=== PATIENT | female | born 1970 | race Caucasian/White ===

== ENCOUNTER 2017-10-07 15:03 | Emergency (ER) | payer MEDICAID ==
--- NOTE | 2017-10-07 15:35 | EDM.PDOC ---
ED HPI GENERAL MEDICAL PROBLEM - General Chief Complaint: Upper Extremity Injury/Pain Stated Complaint: LEFT ARM/SHOULDER PAIN Time Seen by Provider: 10/07/17 15:20 Source of Information: Reports: Patient History Limitations: Reports: No Limitations - History of Present Illness INITIAL COMMENTS - FREE TEXT/NARRATIVE: 47 yo female here with a 2 mos hx of progressive L shoulder pain and inability now to raise that arm. The pain radiates at times toward the elbow. Has not been seen for this. Recalls no acute injury other than possibly early on with attempting to put her bra on. 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) Left Arm Pain Score (Numeric/FACES): 2 - Related Data Allergies Allergy/AdvReac Type Severity Reaction Status Date / Time No Known Allergies Allergy Verified 10/07/17 15:22 Home Meds: Home Meds NK [No Known Home Meds] 10/07/17 [History] Past Medical History Other OB/BYN History: UTERINE FIBROIDS Hematologic History: Reports: Anemia - Past Surgical History Other Musculoskeletal Surgeries/Procedures:: L ANKLE REPAIR Social & Family History - Tobacco Use Smoking Status *Q: Unknown Ever Smoked Review of Systems - Review of Systems Review Of Systems: See Below Musculoskeletal: Reports: Shoulder Pain (Left) Skin: Reports: No Symptoms Neurological: Reports: No Symptoms ED EXAM, GENERAL - Physical Exam Exam: See Below Exam Limited By: No Limitations General Appearance: Alert, WD/WN, No Apparent Distress Extremities: Normal Inspection, Non-Tender, Limited Range of Motion (Unable to abduct at the left shoulder even to horizontal. ). No: Normal Range of Motion, No Pedal Edema, Joint Swelling, Arm Pain Neurological: Alert, Oriented, CN II-XII Intact, Normal Cognition Psychiatric: Normal Affect, Normal Mood Skin Exam: Warm, Dry, Intact, Normal Color, No Rash Lymphatic: No Adenopathy Course - Vital Signs Text/Narrative:: sling given Last Recorded V/S: Last Vital Signs Temp 36.5 C 10/07/17 15:24 Pulse 67 10/07/17 15:24 Resp 16 10/07/17 15:24 BP 161/103 H 10/07/17 15:24 Pulse Ox 99 10/07/17 15:24 Departure - Departure Time of Disposition: 15:40 Disposition: Home, Self-Care 01 Condition: Good Clinical Impression: Rotator cuff insufficiency Qualifiers: Laterality: left Qualified Code(s): M25.312 - Other instability, left shoulder - Discharge Information Referrals: PCP,None [Primary Care Provider] -
== END 2017-10-07 15:49 | disposition home or self-care (01) ==
LOC: JP.ED 15:03
DX: M75.82 Other shoulder lesions, left shoulder (principal)
CPT/HCPCS: 99283

== ENCOUNTER 2017-11-03 10:09 | Emergency (ER) | payer MEDICAID ==
--- NOTE | 2017-11-03 12:38 | EDM.PDOC ---
ED HPI GENERAL MEDICAL PROBLEM - General Chief Complaint: Skin Complaint Stated Complaint: INFECTION ON BUTTOCKS AREA Time Seen by Provider: 11/03/17 12:11 Source of Information: Reports: Patient, RN Notes Reviewed History Limitations: Reports: No Limitations - History of Present Illness INITIAL COMMENTS - FREE TEXT/NARRATIVE: 47-year-old female presents to the emergency department today with complaint of rash on her buttocks area, she states it developed over the last couple days it seems to be spreading initially started on the left now has gone to the right it is predominantly above the gluteal cleft it is quite itchy Sacral Pain Score (Numeric/FACES): 5 - Related Data Allergies Allergy/AdvReac Type Severity Reaction Status Date / Time No Known Allergies Allergy Verified 11/03/17 12:06 Home Meds: Home Meds NK [No Known Home Meds] 11/03/17 [History] Past Medical History 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 History: Reports: Fibroids Other OB/BYN History: UTERINE FIBROIDS Musculoskeletal History: Reports: Other (See Below) Other Musculoskeletal History: L shoulder pain Hematologic History: Reports: Anemia - Past Surgical History Other Musculoskeletal Surgeries/Procedures:: L ANKLE REPAIR-torn tendon and cyst Social & Family History - Tobacco Use Smoking Status *Q: Heavy Tobacco Smoker Years of Tobacco use: 20 Packs/Tins Daily: 1 - Caffeine Use Caffeine Use: Reports: Coffee - Alcohol Use Days Per Week of Alcohol Use: 3 Number of Drinks Per Day: 3 Total Drinks Per Week: 9 - Recreational Drug Use Recreational Drug Use: No ED ROS GENERAL - Review of Systems Review Of Systems: See Below Constitutional: Reports: No Symptoms Skin: Reports: Pruritis, Rash ED EXAM, SKIN/RASH Exam: See Below Text/Narrative:: Examination of the rash there are 2 predominately patches slightly raised it is erythematous there are multiple satellite lesions no pustules noted is no pallor , nontender Course - Vital Signs Last Recorded V/S: Last Vital Signs Temp 98.1 F 11/03/17 12:02 Pulse 65 11/03/17 12:02 Resp 16 11/03/17 12:02 BP 151/85 H 11/03/17 12:02 Pulse Ox 100 11/03/17 12:02 - Orders/Labs/Meds Orders: Active Orders 24 hr Category Date Time Status ROOPA PREP [MYC] Stat Lab 11/03/17 12:34 Ordered Departure - Departure Time of Disposition: 12:37 Disposition: Home, Self-Care 01 Condition: Good Clinical Impression: Tinea corporis - Discharge Information Referrals: PCP,None [Primary Care Provider] - Additional Instructions: Try the antifungals, Please followup with your primary care provider in 3-5 days if not better, please call return to the emergency department with worsening of symptoms. - My Orders Last 24 Hours: My Active Orders 11/03/17 12:34 ROOPA PREP [MYC] Stat - Assessment/Plan Last 24 Hours: My Active Orders 11/03/17 12:34 ROOPA PREP [MYC] Stat Plan: Assessment Acuity = acute Site and laterality = tinea corporis Etiology = yeast Manifestations = pruritus Location of injury = Home Lab values = ROOPA was negative however sample was poor Plan Recommend treatment with antifungals, she will follow-up with her primary care 3 -5 days for reevaluation This note was dictated using [employer] voice recognition software please call with any questions on syntax or justa.
== END 2017-11-03 13:15 | disposition home or self-care (01) ==
LOC: JP.ED 10:09
DX: B35.4 Tinea corporis (principal); F17.210 Nicotine dependence, cigarettes, uncomplicated
CPT/HCPCS: 87220; 99283

== ENCOUNTER 2018-01-03 22:08 | Emergency (ER) | payer MEDICAID ==
[2018-01-03] MEDS ORDERED: Sodium Chloride 0.9% 1,000 ML IV SCH (23:00)
--- NOTE | 2018-01-03 23:04 | EDM.PDOC ---
ED HPI GENERAL MEDICAL PROBLEM - General Chief Complaint: Genitourinary Problem Stated Complaint: UNABLE TO URINATE Time Seen by Provider: 01/03/18 22:20 Source of Information: Reports: Patient History Limitations: Reports: No Limitations - History of Present Illness INITIAL COMMENTS - FREE TEXT/NARRATIVE: pt has a frequent urge to void but she is not able to go whrn she gets there . She has a great deal of pressure on her bladder. She feels like there is a fullness in the rt lower abdoman. She hs a history of a enlarged uterus with multiple fibroids. She has been told that she needs a hysterectomy. Onset: Today, Other (Pt has had difficulty voiding all nite. 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, Other OB/BYN History: UTERINE FIBROIDS, needs to have a hysterectomy Musculoskeletal History: Reports: Other (See Below) Other Musculoskeletal History: L shoulder pain Hematologic History: Reports: Anemia - Infectious Disease History Infectious Disease History: Reports: Chicken Pox - Past Surgical History Other Musculoskeletal Surgeries/Procedures:: L ANKLE REPAIR-torn tendon and cyst Social & Family History - Tobacco Use Smoking Status *Q: Never Smoker Second Hand Smoke Exposure: No - Caffeine Use Caffeine Use: Reports: Coffee, Soda - Recreational Drug Use Recreational Drug Use: No ED ROS GENERAL - Review of Systems Review Of Systems: See Below Constitutional: Reports: No Symptoms HEENT: Reports: No Symptoms Respiratory: Reports: No Symptoms Cardiovascular: Reports: No Symptoms Endocrine: Reports: No Symptoms GI/Abdominal: Reports: Abdominal Pain, Other (pt has pressure in the rt lower abdoman. ) : Reports: Other (pt is having difficulty voiding but she does not have a lot of urine in her bladder. She does have some burning when she voids. ) Musculoskeletal: Reports: No Symptoms Skin: Reports: No Symptoms Neurological: Reports: No Symptoms Psychiatric: Reports: No Symptoms ED EXAM, RENAL/ - Physical Exam Exam: See Below Text/Narrative:: pt arrived with a constant urge to void but is not able to go more than a small amount when she gets there. Exam Limited By: No Limitations General Appearance: Alert, Moderate Distress Ears: Normal TMs Nose: Normal Inspection Throat/Mouth: Normal Inspection Head: Atraumatic Neck: Normal Inspection Respiratory/Chest: No Respiratory Distress Cardiovascular: Regular Rate, Rhythm GI/Abdominal: Soft, Tender, Other (pt has rt lower quandrant and suprapupic tenderness. ) (Female) Exam: Deferred Rectal (Female) Exam: Deferred Back Exam: Normal Inspection Extremities: Normal Inspection Neurological: Alert, Oriented, Normal Cognition Psychiatric: Normal Affect Course - Vital Signs Last Recorded V/S: Last Vital Signs Temp 37.3 C 01/03/18 22:21 Pulse 74 01/03/18 22:21 Resp 18 01/03/18 22:21 BP 161/97 H 01/03/18 22:21 Pulse Ox 98 01/03/18 22:21 - Orders/Labs/Meds Labs: Laboratory Tests 01/03/18 01/03/18 01/03/18 Range/Units 22:30 22:30 22:40 WBC 9.9 (4.5-11.0) K/uL RBC 4.26 (3.30-5.50) M/uL Hgb 13.4 (12.0-15.0) g/dL Hct 39.5 (36.0-48.0) % MCV 93 (80-98) fL MCH 32 H (27-31) pg MCHC 34 (32-36) % Plt Count 221 (150-400) K/uL Neut % (Auto) 68 H (36-66) % Lymph % (Auto) 22 L (24-44) % [place] % (Auto) 7 H (2-6) % Eos % (Auto) 3 (2-4) % Baso % (Auto) 0 (0-1) % Sodium (140-148) mmol/L Potassium (3.6-5.2) mmol/L Chloride (100-108) mmol/L Carbon Dioxide (21-32) mmol/L Anion Gap (5.0-14.0) mmol/L BUN (7-18) mg/dL Creatinine (0.6-1.0) mg/dL Est Cr Clr Drug Dosing mL/min Estimated GFR (MDRD) (>60) Glucose (74-106) mg/dL Calcium (8.5-10.1) mg/dL Total Bilirubin (0.2-1.0) mg/dL AST (15-37) U/L ALT (12-78) U/L Alkaline Phosphatase (46-116) U/L Total Protein (6.4-8.2) g/dL Albumin (3.4-5.0) g/dL Globulin (2.3-3.5) g/dL Albumin/Globulin Ratio (1.2-2.2) Urine Color Red Urine Appearance Slightly cloudy Urine pH 8.0 (4.5-8.0) Ur Specific [place] 1.010 (1.008-1.030) Urine Protein 500 H (NEGATIVE) mg/dL Urine Glucose (UA) Normal (NEGATIVE) mg/dL Urine Ketones Negative (NEGATIVE) mg/dL Urine Occult Blood Large (NEGATIVE) Urine Nitrite Negative (NEGATIVE) Urine Bilirubin Negative (NEGATIVE) Urine Urobilinogen Normal (NORMAL) mg/dL Ur Leukocyte Esterase Large (NEGATIVE) Urine RBC 50-75 H (0-5) Urine WBC 50-75 H (0-5) Ur Epithelial Cells Few Amorphous Sediment Not seen Urine Bacteria Many Urine Mucus Not seen Urine HCG, Qual Negative 01/03/18 Range/Units 22:40 WBC (4.5-11.0) K/uL RBC (3.30-5.50) M/uL Hgb (12.0-15.0) g/dL Hct (36.0-48.0) % MCV (80-98) fL MCH (27-31) pg MCHC (32-36) % Plt Count (150-400) K/uL Neut % (Auto) (36-66) % Lymph % (Auto) (24-44) % [place] % (Auto) (2-6) % Eos % (Auto) (2-4) % Baso % (Auto) (0-1) % Sodium 139 L (140-148) mmol/L Potassium 3.5 L (3.6-5.2) mmol/L Chloride 105 (100-108) mmol/L Carbon Dioxide 23 (21-32) mmol/L Anion Gap 14.5 H (5.0-14.0) mmol/L BUN 10 (7-18) mg/dL Creatinine 0.8 (0.6-1.0) mg/dL Est Cr Clr Drug Dosing 85.81 mL/min Estimated GFR (MDRD) > 60 (>60) Glucose 80 (74-106) mg/dL Calcium 8.2 L (8.5-10.1) mg/dL Total Bilirubin 0.3 (0.2-1.0) mg/dL AST 21 (15-37) U/L ALT 19 (12-78) U/L Alkaline Phosphatase 67 (46-116) U/L Total Protein 7.1 (6.4-8.2) g/dL Albumin 3.6 (3.4-5.0) g/dL Globulin 3.5 (2.3-3.5) g/dL Albumin/Globulin Ratio 1.0 L (1.2-2.2) Urine Color Urine Appearance Urine pH (4.5-8.0) Ur Specific [place] (1.008-1.030) Urine Protein (NEGATIVE) mg/dL Urine Glucose (UA) (NEGATIVE) mg/dL Urine Ketones (NEGATIVE) mg/dL Urine Occult Blood (NEGATIVE) Urine Nitrite (NEGATIVE) Urine Bilirubin (NEGATIVE) Urine Urobilinogen (NORMAL) mg/dL Ur Leukocyte Esterase (NEGATIVE) Urine RBC (0-5) Urine WBC (0-5) Ur Epithelial Cells Amorphous Sediment Urine Bacteria Urine Mucus Urine HCG, Qual Meds: Medications Discontinued Medications Generic Name Dose Route Start Last Admin Trade Name Freq PRN Reason Stop Dose Admin Sodium Chloride 1,000 mls @ 999 mls/hr 01/03/18 23:00 01/03/18 23:52 Normal Saline IV 999 mls/hr ASDIRECTED RAHEEM Administration Sodium Chloride 100 mls @ 3 mls/sec 01/03/18 23:30 01/03/18 23:42 Normal Saline IV 3 mls/sec ASDIRECTED RAHEEM Administration Ceftriaxone Sodium 1 gm/ 50 mls @ 100 mls/hr 01/03/18 23:42 01/03/18 23:54 Sodium Chloride IV 01/04/18 00:11 100 mls/hr ONETIME ONE Administration Iopamidol 100 ml 01/03/18 23:30 01/03/18 23:42 Isovue-300 (61%) IV 100 ml . DIRECTED RAHEEM Administration - Re-Assessments/Exams Free Text/Narrative Re-Assessment/Exam: 01/04/18 00:43 Urine has alot of blood in it because she is on her period. The urine also shows alot of bacteria. A culture was set up. Her cat scan shows very large fibroids, her bladder wall is thickened probably from infection. Departure - Departure Time of Disposition: 00:44 Disposition: Home, Self-Care 01 Condition: Fair Clinical Impression: UTI (urinary tract infection), Fibroid uterus - Discharge Information Instructions: Uterine Fibroids, [id number], Urinary Tract Infection, Adult, [id number] Referrals: PCP,None [Primary Care Provider] - Forms: ED Department Discharge Care Plan Goals: procede with the hysterectomy as previosly reccommended, push fluids, cipro 500mg bid for 10 days, pyridium 200mg tid.
[2018-01-03] MEDS ORDERED: Iopamidol 612 MG/ML 100 ML Bottle IV SCH (23:30)
[2018-01-03] MEDS ORDERED: Sodium Chloride 0.9% 100 ML IV SCH (23:30)
[2018-01-03] MEDS: cefTRIAXone 1 GM in Sodium Chloride 0.9% 50 ML IV ONE (23:54)
== END 2018-01-04 01:50 | disposition home or self-care (01) ==
LOC: JP.ED 22:08
DX: D25.9 Leiomyoma of uterus, unspecified (principal); N39.0 Urinary tract infection, site not specified
CPT/HCPCS: 36415; 51798; 74177; 80053; 81001; 81025; 85025; 87086; 87088; 87186; 96361; 96365; 99284; J0696; J7030; J7040; J7050; Q9967

== ENCOUNTER 2018-01-07 11:50 | Emergency (ER) | payer MEDICAID ==
--- NOTE | 2018-01-07 12:34 | EDM.PDOC ---
ED HPI GENERAL MEDICAL PROBLEM - General Chief Complaint: General Stated Complaint: MEDICAL VIA [place]TH Time Seen by Provider: 01/07/18 12:31 Source of Information: Reports: Patient History Limitations: Reports: No Limitations - History of Present Illness INITIAL COMMENTS - FREE TEXT/NARRATIVE: Pt arrived after nearly passing out and feeling tingly while working at [facility] [employer]. Onset: Today, Sudden Duration: Hour(s): Location: Reports: Upper Extremity, Left, Upper Extremity, Right Quality: Reports: Other (p felt tingly) Severity: Moderate Associated Symptoms: Reports: Weakness, Other (nearly passed out. 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, Other OB/BYN History: UTERINE FIBROIDS, needs to have a hysterectomy Musculoskeletal History: Reports: Other (See Below) Other Musculoskeletal History: L shoulder pain Hematologic History: Reports: Anemia - Infectious Disease History Infectious Disease History: Reports: Chicken Pox - Past Surgical History Other Musculoskeletal Surgeries/Procedures:: L ANKLE REPAIR-torn tendon and cyst Social & Family History - Tobacco Use Smoking Status *Q: Current Every Day Smoker Years of Tobacco use: 25 Packs/Tins Daily: 1 Second Hand Smoke Exposure: No - Caffeine Use Caffeine Use: Reports: Coffee, Soda - Alcohol Use Days Per Week of Alcohol Use: 4 Number of Drinks Per Day: 4 Total Drinks Per Week: 16 - Recreational Drug Use Recreational Drug Use: No ED ROS GENERAL - Review of Systems Review Of Systems: See Below Constitutional: Reports: Weakness, Other (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 ) HEENT: Reports: No Symptoms Respiratory: Reports: No Symptoms Cardiovascular: Reports: No Symptoms, Other ( Pt had tingling i her arms. ) Endocrine: Reports: No Symptoms GI/Abdominal: Reports: No Symptoms : Reports: Other (Pt has a knwn uti. ) Musculoskeletal: Reports: No Symptoms Skin: Reports: No Symptoms Neurological: Reports: No Symptoms ED EXAM, GENERAL - Physical Exam Exam: See Below Free Text/Narrative:: pt was working in the [employer] kitchen at [employer]. She nearly passed out. She has a known UTI Exam Limited By: No Limitations General Appearance: Alert, No Apparent Distress, Other ( good vital signs. Pupils equal and reactive. ) Ears: Normal TMs Nose: Normal Inspection Throat/Mouth: Normal Inspection Head: Atraumatic Neck: Normal Inspection Respiratory/Chest: No Respiratory Distress Cardiovascular: Regular Rate, Rhythm GI/Abdominal: Soft, Non-Tender (Female) Exam: Other (pt presently has a UTI. ) Rectal (Female) Exam: Deferred Back Exam: Normal Inspection Extremities: Normal Inspection Neurological: Alert, Oriented, Normal Cognition Course - Vital Signs Last Recorded V/S: Last Vital Signs Temp 37.3 C 01/07/18 12:00 Pulse 79 01/07/18 12:00 Resp 20 01/07/18 12:00 BP 139/84 01/07/18 12:00 Pulse Ox 99 01/07/18 12:00 - Orders/Labs/Meds Orders: Active Orders 24 hr Category Date Time Status EKG Documentation Completion [RC] ASDIRECTED Care 01/07/18 12:39 Active EKG 12 Lead [EK] Routine Ther 01/07/18 12:39 Ordered Labs: Laboratory Tests 01/07/18 01/07/18 Range/Units 12:12 12:28 WBC 4.1 L (4.5-11.0) K/uL RBC 3.89 (3.30-5.50) M/uL Hgb 12.0 (12.0-15.0) g/dL Hct 35.9 L (36.0-48.0) % MCV 92 (80-98) fL MCH 31 (27-31) pg MCHC 33 (32-36) % Plt Count 232 (150-400) K/uL Neut % (Auto) 55 (36-66) % Lymph % (Auto) 31 (24-44) % [place] % (Auto) 9 H (2-6) % Eos % (Auto) 6 H (2-4) % Baso % (Auto) 1 (0-1) % Sodium 142 (140-148) mmol/L Potassium 3.3 L (3.6-5.2) mmol/L Chloride 106 (100-108) mmol/L Carbon Dioxide 23 (21-32) mmol/L Anion Gap 16.3 H (5.0-14.0) mmol/L BUN 9 (7-18) mg/dL Creatinine 0.8 (0.6-1.0) mg/dL Est Cr Clr Drug Dosing 85.81 mL/min Estimated GFR (MDRD) > 60 (>60) Glucose 109 H (74-106) mg/dL Calcium 7.8 L (8.5-10.1) mg/dL Total Bilirubin 0.3 (0.2-1.0) mg/dL AST 20 (15-37) U/L ALT 20 (12-78) U/L Alkaline Phosphatase 55 (46-116) U/L Total Protein 6.5 (6.4-8.2) g/dL Albumin 3.3 L (3.4-5.0) g/dL Globulin 3.2 (2.3-3.5) g/dL Albumin/Globulin Ratio 1.0 L (1.2-2.2) - Re-Assessments/Exams Free Text/Narrative Re-Assessment/Exam: 01/07/18 13:44 pt arrived after a near syncope. Pt has not been eating or drinking correctly. She has a known Uti. There is no change in her labs. Her ekg was normal. Departure - Departure Time of Disposition: 13:45 Disposition: Home, Self-Care 01 Condition: Fair Clinical Impression: Dehydration, Syncope - Discharge Information Instructions: Dehydration, Adult, [id number], Syncope, [id number] Referrals: PCP,None [Primary Care Provider] - Forms: ED Department Discharge Care Plan Goals: push fluids, finish antibiotics, consider a OBGYN consult regarding a hysterectomy. - My Orders Last 24 Hours: My Active Orders 01/07/18 12:39 EKG Documentation Completion [RC] ASDIRECTED EKG 12 Lead [EK] Routine - Assessment/Plan Last 24 Hours: My Active Orders 01/07/18 12:39 EKG Documentation Completion [RC] ASDIRECTED EKG 12 Lead [EK] Routine
== END 2018-01-07 13:59 | disposition home or self-care (01) ==
LOC: JP.ED 11:50
DX: R55 Syncope and collapse (principal); E86.0 Dehydration; F17.210 Nicotine dependence, cigarettes, uncomplicated
CPT/HCPCS: 36415; 80053; 85025; 93005; 99285-25

== ENCOUNTER 2018-02-09 09:46 | Emergency (ER) | payer MEDICAID ==
--- NOTE | 2018-02-09 10:28 | EDM.PDOC ---
ED HPI GENERAL MEDICAL PROBLEM - General Chief Complaint: General Stated Complaint: HIGH BLOOD PRESSURE Time Seen by Provider: 02/09/18 10:10 Source of Information: Reports: Patient, Old Records, RN History Limitations: Reports: No Limitations - History of Present Illness INITIAL COMMENTS - FREE TEXT/NARRATIVE: 47 yo female presents for elevated BP. Has no REEVES or CP. Has no local doctor so came to the ER. Is taking Sudafed currently for ear and nasal congestion. Has has elevated BP's in the past. Is awaiting a date for hysterectomy in [place] for vaginal bleeding. Has had iron tx for this, no transfusions. Is a smoker. Onset: Gradual, Unknown/Unsure Duration: Intermittent, Waxing/Waning Quality: Reports: Other (no pain) Severity: Mild Improves with: Reports: None Worsens with: Reports: Medication (? Sudafed) Context: Reports: Other (current cold sx's) Associated Symptoms: Reports: Other (rhinitis). 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, Other OB/BYN History: UTERINE FIBROIDS, needs to have a hysterectomy Musculoskeletal History: Reports: Other (See Below) Other Musculoskeletal History: L shoulder pain Hematologic History: Reports: Anemia - Infectious Disease History Infectious Disease History: Reports: Chicken Pox - Past Surgical History Other Musculoskeletal Surgeries/Procedures:: L ANKLE REPAIR-torn tendon and cyst Social & Family History - Tobacco Use Smoking Status *Q: Heavy Tobacco Smoker Years of Tobacco use: 20 Packs/Tins Daily: 0.7 - Caffeine Use Caffeine Use: Reports: Coffee - Recreational Drug Use Recreational Drug Use: No ED ROS GENERAL - Review of Systems Review Of Systems: See Below Constitutional: Reports: No Symptoms HEENT: Reports: Rhinitis, Other (congestion) Respiratory: Reports: No Symptoms Cardiovascular: Reports: Blood Pressure Problem GI/Abdominal: Reports: No Symptoms : Reports: Other (vaginal bleeding) Musculoskeletal: Reports: No Symptoms Skin: Reports: No Symptoms Neurological: Reports: No Symptoms ED EXAM, GENERAL - Physical Exam Exam: See Below Exam Limited By: No Limitations General Appearance: Alert, WD/WN, No Apparent Distress Eye Exam: Bilateral Eye: Normal Inspection, Other (no conjunctival pallor) Ears: Normal External Exam, Normal Canal Ear Exam: Bilateral Ear: Auricle Normal, Canal Normal Nose: Normal Inspection Throat/Mouth: Normal Inspection, Normal Lips, Normal Voice, No Airway Compromise Head: Atraumatic, Normocephalic Neck: Normal Inspection, Supple Respiratory/Chest: No Respiratory Distress, Other (few faint rhonchi, scattered) Cardiovascular: Regular Rate, Rhythm, No Edema Neurological: Alert, Oriented, CN II-XII Intact, Normal Cognition, No Motor/ Sensory Deficits Psychiatric: Normal Affect, Normal Mood Skin Exam: Warm, Dry, Intact, Normal Color, No Rash Lymphatic: No Adenopathy Course - Vital Signs Last Recorded V/S: Last Vital Signs Temp 36.7 C 02/09/18 10:06 Pulse 73 02/09/18 10:06 Resp 14 02/09/18 10:06 BP 170/98 H 02/09/18 10:06 Pulse Ox 100 02/09/18 10:06 Departure - Departure Time of Disposition: 10:29 Disposition: Home, Self-Care 01 Condition: Good Clinical Impression: Tobacco abuse HTN (hypertension) Qualifiers: Hypertension type: unspecified Qualified Code(s): I10 - Essential (primary) hypertension - Discharge Information Referrals: PCP,None [Primary Care Provider] -
== END 2018-02-09 10:50 | disposition home or self-care (01) ==
LOC: JP.ED 09:46
DX: I10 Essential (primary) hypertension (principal); F17.210 Nicotine dependence, cigarettes, uncomplicated
CPT/HCPCS: 99283